=== PATIENT | female | born 1990 | race American Indian/Alaskan Native ===

== ENCOUNTER 2016-11-07 10:13 | Emergency (ER) | payer SELFPAY ==
[2016-11-07] MEDS ORDERED: TORADOL IM ONE (11:53)
--- NOTE | 2016-11-07 12:15 | Emergency Department Report ---
ED General Adult HPI - General Chief complaint: Headache Stated complaint: HEADACHE Time Seen by Provider: 11/07/16 11:40 Source: patient Mode of arrival: Ambulatory Limitations: No Limitations - History of Present Illness Initial comments: PT states "I need a cat scan" PT reports intermittent headache x 2 years. PT states she was seen at hospital in [place] and sent to Neuro. PT states she followed up with Neuro and was dx with migraines but no imaging or testing done. PT states this headache feels like previous headaches but is more intense and it has lasted for three days which is the longest her headache has ever lasted. PT states she was at home when the headache started, headache gradually worsened. PT denies head injury prior to pain. MD Complaint: Headache Onset/Timin -: days(s) Location: head (post ) Severity scale (0 -10): 10 Quality: aching, constant Consistency: constant Improves with: none Worsens with: none Associated Symptoms: headaches, nausea/vomiting. denies: chest pain, fever/ chills Treatments Prior to Arrival: none - Related Data Previous Rx's Medication Instructions Recorded Last Taken Type Butalb/Acetamin/Caff 50-325-40 1 tab PO Q6HR PRN #12 tab 11/07/16 Unknown Rx [Fioricet] Allergies Allergy/AdvReac Type Severity Reaction Status Date / Time No Known Allergies Allergy Unverified 11/07/16 10:39 ED Review of Systems ROS: Stated complaint: HEADACHE Other details as noted in HPI Comment: All other systems reviewed and negative Constitutional: denies: chills, fever Eyes: eye pain (photophobia, pt covering eyes from light ) ENT: other (denies URI symptoms ). denies: congestion Cardiovascular: denies: chest pain Gastrointestinal: nausea (2 days ago ). denies: abdominal pain, vomiting Genitourinary: denies: abnormal menses (on Depo, spotted 2 days ago, lmp 12-16 ) Skin: denies: rash Neurological: headache, other. denies: numbness, paresthesias, abnormal gait, vertigo ED Past Medical Hx - Past Medical History Previous Medical History?: Yes Hx Headaches / Migraines: Yes - Surgical History Past Surgical History?: No - Family History Family history: no significant - Social History Smoking Status: Never Smoker Substance Use Type: Alcohol - Medications Home Medications: Home Medications Medication Instructions Recorded Confirmed Last Taken Type Butalb/Acetamin/Caff 50-325-40 1 tab PO Q6HR PRN #12 tab 11/07/16 Unknown Rx [Fioricet] ED Physical Exam - General Limitations: No Limitations General appearance: alert, in no apparent distress - Head Head exam: Present: atraumatic, normocephalic, normal inspection - Eye Eye exam: Present: normal appearance, PERRL, EOMI. Absent: conjunctival injection Pupils: Present: normal accommodation - ENT ENT exam: Present: normal exam, mucous membranes moist, normal external ear exam - Neck Neck exam: Present: normal inspection, full ROM - Respiratory Respiratory exam: Present: normal lung sounds bilaterally. Absent: respiratory distress, wheezes, chest wall tenderness - Cardiovascular Cardiovascular Exam: Present: regular rate, normal rhythm, normal heart sounds - Extremities Exam Extremities exam: Present: normal inspection, full ROM - Back Exam Back exam: Present: normal inspection, full ROM - Neurological Exam Neurological exam: Present: alert, oriented X3, CN II-XII intact, normal gait - Psychiatric Psychiatric exam: Present: normal affect, normal mood - Skin Skin exam: Present: warm, dry, intact, normal color ED Course Vital Signs 11/07/16 11/07/16 11/07/16 10:39 12:49 14:28 Temperature 98.7 F Pulse Rate 63 58 L Respiratory 18 18 18 Rate Blood Pressure 131/89 Blood Pressure 126/82 [Right] O2 Sat by Pulse 98 Oximetry - Reevaluation(s) Reevaluation #1: 11/07/16 12:59 PT aware of plan of care. PT has no questions at this time. Reevaluation #2: 11/07/16 14:14 PT states toradol helped her pain and states her headache is gone. PT is aware of CT report. PT has no questions at this time. - Pulse Oximetry Interpretation Digit-Finger Initial Pulse Oximetry Readin Actions Taken: none ED Medical Decision Making - Radiology Data Radiology results: report reviewed CT head- NAP - Differential Diagnosis migraine, headache, intracranial process Critical Care Time: No Critical care attestation.: If time is entered above; I have spent that time in minutes in the direct care of this critically ill patient, excluding procedure time. ED Disposition Clinical Impression: Acute headache Qualifiers: Headache type: unspecified Intractability: not intractable Qualified Code(s): R51 - Headache Disposition: DISCHARGED TO HOME OR SELFCARE Is pt being admited?: No Does the pt Need Aspirin: No Condition: Stable Instructions: Migraine Headache (ED), Acute Headache (ED) Additional Instructions: Follow up with PCP, if your headaches persist, you may need a referral to a Neurologist, your PCP can help you with this Prescriptions: Butalb/Acetamin/Caff 50-325-40 [Fioricet] 1 tab PO Q6HR PRN #12 tab PRN Reason: Headache Referrals: [facility] [Outside] - 3-5 Days [facility] [Outside] - 3-5 Days MIKEY HECTOR MD [Staff Physician] - 3-5 Days [facility], [Primary Care Provider] - 3-5 Days Forms: Work/School Release Form(ED) Time of Disposition: 14:16
--- NOTE | 2016-11-07 14:03 | Cat Scan Report ---
CT HEAD WITHOUT CONTRAST: HISTORY: Headache. Serial contiguous axial images were obtained through the cranium. Intravenous contrast material was not administered. The ventricles are normal in size and appearance. There is no mass effect or midline shift. No areas of abnormally increased or decreased attenuation are seen. No mass lesion is seen. The mastoid air cells and visualized portions of the sinuses are normal. IMPRESSION: Cranial CT scan within normal limits.
[2016-11-07 14:29] VITALS: BP 126/82
== END 2016-11-07 14:28 | disposition home or self-care (01) ==
LOC: ED 10:13
DX: R51 Headache (principal)
CPT/HCPCS: 70450; 81025; 96372; 99284; J1885